=== PATIENT | male | born 1945 | race Caucasian/White ===

== ENCOUNTER → 2016-12-26 | Outpatient (CLI) | payer MEDICARE, BC | END | disposition home or self-care (01) | LOC: PCVCCLINIC 11:03 | PROVIDERS: ATTEND Internal Medicine Cardiovascular Disease | DX: I50.9 Heart failure, unspecified (principal); E78.5 Hyperlipidemia, unspecified; R94.39 Abnormal result of other cardiovascular function study; I42.0 Dilated cardiomyopathy; R06.02 Shortness of breath; R68.89 Other general symptoms and signs; R41.0 Disorientation, unspecified | CPT/HCPCS: 80061; 93005; 93306; G0463 ==

== ENCOUNTER → 2016-12-28 | Outpatient (CLI) | payer MEDICARE, BC ==
[~2016-12-28] MED LIST: DIAZEPAM 10 MG TABLET ONE; FENTANYL PF 100 MCG/2 ML VIAL. ONE; FUROSEMIDE 40 MG/4 ML VIAL ONE; HEPARIN 1,000 UNIT/ML VIAL for PCVC ONE; IOHEXOL 350 MG/ML 100ML VIAL. ONE; IOHEXOL 350 MG/ML 50 ML VIAL. ONE; IV NORMAL SALINE 1000ML BAG 1,000 ML ONE; LIDOCAINE 1% Multi-Dose 20 ML VIAL. ONE; MIDAZOLAM HCL 2 MG/2 ML VIAL. ONE
== END | disposition home or self-care (01) ==
LOC: PCVCINTER 06:51
PROVIDERS: ATTEND Internal Medicine Cardiovascular Disease
DX: I50.9 Heart failure, unspecified (principal); E78.5 Hyperlipidemia, unspecified; R94.39 Abnormal result of other cardiovascular function study; I42.0 Dilated cardiomyopathy; R06.02 Shortness of breath; R68.89 Other general symptoms and signs; R41.0 Disorientation, unspecified
CPT/HCPCS: 36252; 93460; C1751; C1760; C1769; C1894; J1644; J1940; J2250; J3010; J7030; Q9967